=== PATIENT | male | born 1950 | race Caucasian/White ===

== ENCOUNTER 2023-10-01 12:34 | Emergency (ER) | payer MEDICARE, OTHER, SELFPAY ==
[2023-10-01] VITALS (18 sets, daily range): BP systolic 102–145; BP diastolic 61–88; PULSE 68–137; RESP 13–46; TEMP 36.2; O2SAT 84–100; BMI 24.3
--- NOTE | 2023-10-01 12:50 | DI.RAD.S_ITS ---
PROCEDURE: XR CHEST 1V INDICATIONS: chest pain TECHNIQUE: One view of the chest was acquired. COMPARISON: None. FINDINGS: Surgical changes and devices: None. Lungs and pleura: Lungs are clear. No pleural effusions or pneumothorax. Mediastinum: Mediastinal contours appear normal. Heart size is normal. Bones and chest wall: No suspicious bony lesions. Overlying soft tissues appear unremarkable. IMPRESSION: No acute cardiopulmonary abnormality is seen. Dictated by: Mack Sutherland M.D. on 10/01/2023 at 14:05 Approved by: Mack Sutherland M.D. on 10/01/2023 at 14:06
[2023-10-01 13:24] LABS: Alanine Aminotransferase 24 IU/L (<50); Albumin 4.1 g/dL (3.5-5.0); Albumin Globulin Ratio 1.2 (1.0-2.8); Alkaline Phosphatase 59 U/L (38-126); Aspartate Aminotransferase 30 IU/L (17-59); BUN Creatinine Ratio 18.4 (6-22); Bilirubin Total 0.9 mg/dL (0.2-1.3); Blood Urea Nitrogen 19 mg/dL (9-20); Calcium 9.3 mg/dL (8.4-10.2); Carbon Dioxide 22 mmol/L (22-32); Chloride 109 mmol/L (98-107); Creatine Kinase 50 U/L (55-170); Estimated Glomerular Filt Rate > 60 mL/min (>60); Globulin 3.4 g/dL (1.7-4.1); Glucose 82 mg/dL (80-110); HEMOLYSIS 25 (0-50); Lipase 56 U/L (23-300); Magnesium 2.3 mg/dL (1.6-2.3); Potassium 4.7 mmol/L (3.4-5.1); Sodium 139 mmol/L (137-145); Total Protein 7.5 g/dL (6.3-8.2)
[2023-10-01 13:32] LABS: INR 1.2 (0.9-1.3); Prothrombin Time 13.6 SECONDS (9.4-12.5)
[2023-10-01 13:34] LABS: PTT Partial Thromboplastin Tim 36 SECONDS (25.1-36.5)
[2023-10-01 13:36] LABS: Troponin I < 0.012 ng/mL (0.01-0.034)
[2023-10-01 13:50] LABS: Add Manual Diff / Slide Review NO; Basophils Absolute Auto 100 /uL (0-100); Eosinophils Absolute Auto 100 /uL (0-450); Eosinophils Percent Auto 2.5 % (2-4); Hemoglobin 14.7 g/dL (13.5-17.5); Lymphocytes Absolute Auto 1500 /uL (1100-4500); Lymphocytes Percent Auto 25.3 % (25-40); Mean Corpuscular HGB Conc 33.4 % (30-36); Mean Corpuscular Hemoglobin 31.7 PG (26-34); Mean Corpuscular Volume 94.9 fL (80-100); Monocytes Absolute Auto 600 /uL (0-900); Neutrophils Absolute Auto 3500 /uL (1500-7000); Neutrophils Percent Auto 60.2 % (50-75); Platelet Count 199 X10^3/uL (150-400); Red Blood Cell Count 4.64 X10^6/uL (4.5-5.9); White Blood Cell Count 5.8 X10^3/uL (4.5-11.0)
--- NOTE | 2023-10-01 14:18 | ED.CHESTPAIN ---
HPI - Chest Pain General Chief Complaint: Chest Pain Stated Complaint: AFIB, chest pain, meds not helping Time Seen by Provider: 10/01/23 14:07 Source: patient Mode of arrival: Ambulatory Limitations: no limitations History of Present Illness HPI narrative: Patient here with and sister. Patient and are visiting from [facility]. They have been here for a week. Patient has history of atrial fibrillation and PA/stent. Had stent placed 3 years ago in [place]. Yesterday at 3:00 p.m. had sudden onset left-sided chest pain that was brief. [place] palpitations heart rate in 130s. Was given metoprolol and felt better. He is on Eliquis. He went for a walk this morning with his dog and again had chest pain and fast heart rate and was given metoprolol again. He has had 3 doses of metoprolol since yesterday. Currently chest pain-free. Rate is controlled. Related Data Allergies Allergy/AdvReac Type Severity Reaction Status Date / Time No Known Drug Allergies Allergy Verified 10/01/23 12:41 Review of Systems Review of Systems Narrative: GENERAL: negative chills, fatigue, malaise, fever, sweats. HEENT: negative sinus pain, ear pain, sore throat RESPIRATORY: negative dyspnea, cough CARDIOVASCULAR: Positive chest pain, palpitations GASTROINTESTINAL: negative nausea, vomiting, abdominal pain : negative dysuria, frequency, hematuria MUSCULOSKELETAL: negative muscle or bony pain SKIN: negative rash, skin lesions NEUROLOGIC: negative weakness, numbness ROS Unobtainable: All systems reviewed & are unremarkable except as noted in HPI and below Patient History Social History Smoking Status: Never smoker Smoking Status: Never smoker Substance Use Type: does not use Exam Narrative Exam Narrative: GENERAL: in no distress, not toxic not dyspneic HEAD: Normocephalic. EYES: Pupils equal round ENT: Mucous membranes moist. NECK: Trachea midline. CARDIOVASCULAR: Irregular irregular rate and rhythm, not tachycardic RESPIRATORY: Clear to auscultation. Breath sounds equal bilaterally. No wheezes, rales, or rhonchi. GASTROINTESTINAL: Abdomen soft, non-tender EXTREMITIES: No gross deformities. BACK: No flank tenderness. NEURO: AOx4. SKIN: Warm and dry PSYCH: Not anxious, is cooperative Initial Vital Signs Initial Vital Signs: Vital Signs Temperature 97.1 F L 10/01/23 12:41 Pulse Rate 75 10/01/23 12:41 Respiratory Rate 18 10/01/23 12:41 Blood Pressure 108/67 10/01/23 12:41 Pulse Oximetry 99 10/01/23 12:41 Oxygen Delivery Method Room Air 10/01/23 12:41 Course Orders Ordered: Discontinued Medications Heparin Sodium/Dextrose (Heparin Drip) 25,000 unit in 500 mls @ 27.76 mls/hr IV CONT CRYSTAL; Protocol Last Titration: 10/01/23 20:51 Dose: 18 units/kg/hr, 27.76 mls/hr Documented By: ANABELLE Co-signed By: CAROLYN Admin: 10/01/23 18:15 Dose: 18 units/kg/hr, 27.76 mls/hr Documented By: ANABELLE Co-signed By: CAROLYN Vital Signs Vital signs: Vital Signs - 8 hr 10/01/23 12:41 10/01/23 12:49 10/01/23 12:50 Temperature 97.1 F L Pulse Rate 75 71 68 Respiratory Rate 18 Blood Pressure 108/67 Pulse Oximetry 99 100 100 Oxygen Delivery Method Room Air Oxygen Flow Rate 10/01/23 12:50 10/01/23 13:00 10/01/23 13:30 Temperature Pulse Rate 81 79 Respiratory Rate 24 13 Blood Pressure 126/76 Pulse Oximetry 99 97 Oxygen Delivery Method Oxygen Flow Rate 10/01/23 14:00 10/01/23 14:00 10/01/23 14:30 Temperature Pulse Rate 132 H 79 131 H Respiratory Rate 23 14 24 Blood Pressure 125/88 123/87 Pulse Oximetry 96 98 97 Oxygen Delivery Method Nasal Cannula Nasal Cannula Oxygen Flow Rate 2 2 10/01/23 14:30 10/01/23 15:00 10/01/23 15:00 Temperature Pulse Rate 85 125 H 137 H Respiratory Rate 29 H 22 46 H Blood Pressure 105/81 Pulse Oximetry 98 96 84 L Oxygen Delivery Method Nasal Cannula Oxygen Flow Rate 2 10/01/23 15:30 10/01/23 16:00 Temperature Pulse Rate 87 85 Respiratory Rate 14 15 Blood Pressure Pulse Oximetry 96 96 Oxygen Delivery Method Oxygen Flow Rate MDM - Chest Pain Lab Data 10/01/23 13:40 10/01/23 12:50 Labs: Lab Results 10/01/23 10/01/23 Range/Units 12:50 13:40 WBC 5.8 (4.5-11.0) X10^3/uL RBC 4.64 (4.5-5.9) X10^6/uL Hgb 14.7 (13.5-17.5) g/dL Hct 44.0 (41-53) % MCV 94.9 (80-100) fL MCH 31.7 (26-34) PG MCHC 33.4 (30-36) % RDW 14.0 (11.6-14.8) % Plt Count 199 (150-400) X10^3/uL Neut % (Auto) 60.2 (50-75) % Lymph % (Auto) 25.3 (25-40) % Walsh % (Auto) 11.0 (3-14) % Eos % (Auto) 2.5 (2-4) % Baso % (Auto) 1.0 (0-2) % Neut # (Auto) 3500 (1259-6356) /uL Lymph # (Auto) 1500 (8338-4354) /uL Walsh # (Auto) 600 (0-900) /uL Eos # (Auto) 100 (0-450) /uL Baso # (Auto) 100 (0-100) /uL PT 13.6 H (9.4-12.5) SECONDS INR 1.2 (0.9-1.3) APTT 36 (25.1-36.5) SECONDS Sodium 139 (137-145) mmol/L Potassium 4.7 (3.4-5.1) mmol/L Chloride 109 H (98-107) mmol/L Carbon Dioxide 22 (22-32) mmol/L BUN 19 (9-20) mg/dL Creatinine 1.03 (0.66-1.25) mg/dL Estimated GFR > 60 (>60) mL/min BUN/Creatinine Ratio 18.4 (6-22) Glucose 82 (80-110) mg/dL Calcium 9.3 (8.4-10.2) mg/dL Magnesium 2.3 (1.6-2.3) mg/dL Total Bilirubin 0.9 (0.2-1.3) mg/dL AST 30 (17-59) IU/L ALT 24 (<50) IU/L Alkaline Phosphatase 59 (38-126) U/L Total Creatine Kinase 50 L (55-170) U/L Troponin I < 0.012 (0.01-0.034) ng/mL Total Protein 7.5 (6.3-8.2) g/dL Albumin 4.1 (3.5-5.0) g/dL Globulin 3.4 (1.7-4.1) g/dL Albumin/Globulin Ratio 1.2 (1.0-2.8) Lipase 56 (23-300) U/L Imaging Data Chest x-ray: Radiologist's Impression: [address] [address] XRay Report Signed Patient: Ramona Duenas MR#: [id number] : 1950 Acct:[id number] Age/Sex: 73 / M Date of Service: 10/01/23 Loc: ED Accession Number: [id number] Procedure: XR chest 1V Ordering Provider: Saul Buckner MD PROCEDURE: XR CHEST 1V INDICATIONS: chest pain TECHNIQUE: One view of the chest was acquired. COMPARISON: None. FINDINGS: Surgical changes and devices: None. Lungs and pleura: Lungs are clear. No pleural effusions or pneumothorax. Mediastinum: Mediastinal contours appear normal. Heart size is normal. Bones and chest wall: No suspicious bony lesions. Overlying soft tissues appear unremarkable. IMPRESSION: No acute cardiopulmonary abnormality is seen. Dictated by: Mack Sutherland M.D. on 10/01/2023 at 14:05 Approved by: Mack Sutherland M.D. on 10/01/2023 at 14:06 [facility] Narrative Medical decision making narrative: Patient here with and sister. Patient and are visiting from [facility]. They have been here for a week. Patient has history of atrial fibrillation and PA/stent. Had stent placed 3 years ago in [place]. Yesterday at 3:00 p.m. had sudden onset left-sided chest pain that was brief. [place] palpitations heart rate in 130s. Was given metoprolol and felt better. He is on Eliquis. He went for a walk this morning with his dog and again had chest pain and fast heart rate and was given metoprolol again. He has had 3 doses of metoprolol since yesterday. Currently chest pain-free. Rate is controlled. After history and exam CBC CMP PT INR troponin chest x-ray EKG [facility] Medical records reviewed: No recent visit for this complaint Differential considered: Includes but not limited to STEMI non-STEMI AFib Lab Test results independently reviewed as above. Pertinent findings: Troponin less than 0.012 Independently reviewed EKG atrial fibrillation rate [address] elevation or depression Imaging studies independently reviewed: Chest x-ray no acute finding Consultations: 2:21 p.m.. Spoke with Cardiology, dr blake, who would like me to speak with Dr. London at [facility] in [place] for possible transfer for HECTOR and cardioversion as patient has not been consistent with Eliquis 2:24 p.m.. I spoke with Dr. London, she will be happy to accept patient, admit to hospitalist No beds available at [facility]. 6:00 p.m.. Spoke with [facility] in [place], cardiology Dr. Estes, who would like patient started on heparin. He will decide whether stress test 1st or cardioversion/echocardiogram tomorrow. He would like hospitalist to admit 6:05 p.m.. Spoke with [facility] hospitalist, Dr. Barnes, will accept pt 6:10 p.m.. Spoke with [facility], hospitalist, nurse practitioner, Stephany Mccabe, she will accept patient Treatments: None indicated at this time Re-evaluations: Updated patient and family, they do understand need for transfer as recommended by cardiology services. Rate is controlled. Chest pain-free. Discussion: Appropriate for transfer as recommended by cardiology services for HECTOR as well as cardioversion and stress test. Remains chest pain-free. Vital signs are reassuring. Diagnosis: Chest pain/AFib 6:[address] Buckner: Sign out to Dr. Erickson, patient has been accepted for transfer, bed is pending Discharge Plan Departure Patient Disposition: [facility] Clinical Impression: Chest pain Qualifiers: Chest pain type: unspecified Qualified Code(s): R07.9 - Chest pain, unspecified Atrial fibrillation Qualifiers: Atrial fibrillation type: paroxysmal Qualified Code(s): I48.0 - Paroxysmal atrial fibrillation Referrals: Miscellaneous,[facility] [Primary Care Provider] -
--- NOTE | 2023-10-01 17:41 | PC.NURSE ---
Hospital call list for patient transfer 1441- [facility], spoke with Lauren, patient on wait list 1457- [facility], spoke with Layne, patient on wait list 1724- [facility], spoke with Yaneth, patient on wait list 1731- [facility], spoke with Luz, patient on wait list
[2023-10-01] MEDS: HEPARIN DRIP 25,000 UNIT/500 ML IV.SOLN 27.76 UNIT IV (18:15)
== END 2023-10-01 20:54 | disposition short-term general hospital (02) ==
PROVIDERS: Emergency Provider Emergency Medicine
DX: I48.0 Paroxysmal atrial fibrillation (principal); R07.9 Chest pain, unspecified; Z95.5 Presence of coronary angioplasty implant and graft
CPT/HCPCS: 36415; 71045; 80053; 82550; 83690; 83735; 84484; 85025; 85610; 85730; 93005; 93010; 96365; 96366; 99284; J1644